=== PATIENT | female | born 1975 | race Caucasian/White ===

== ENCOUNTER → 2017-07-02 | Outpatient (CLI) | payer BC ==
[~2017-07-02] MED LIST: ALLEGRA ALLERGY60 MG PO; AZO-CRANBERRY450 MG PO; CEFTIN500 MG PO; CLARITIN10 MG PO; COLACE 100100 MG/CAP PO; FLONASEALLERGY NS; LEVAQUIN 750MG750 M1 PO; PERCOCET 5/321 UDTAB PO; PREDNISONE20 MG PO; PROTONIX 40MG T40 MG PO; PULMICORT90 MCG/Act IH; PYRIDIUM200 M1 PO; RT ALBUTER2.5 MG/0.5 IH; SINGULAIR 110 MG/TAB PO; ZYRTEC 10MG10 MG PO
== END ==
LOC: MC.RAD 07:16
DX: Z12.31 Encounter for screening mammogram for malignant neoplasm of breast (principal); Z98.890 Other specified postprocedural states

== ENCOUNTER → 2023-01-17 | Outpatient (CLI) | payer BC | LOC: MC.RAD 09:40 | DX: R92.8 Other abnormal and inconclusive findings on diagnostic imaging of breast (principal) ==